=== PATIENT | male | born 1945 | race Caucasian/White ===

== ENCOUNTER → 2018-06-12 | Outpatient (REF) | payer MEDICARE, BC ==
[~2018-06-12] MED LIST: AMLODIPINE2.5 MG PO; ASPIRIN LOW DOS81 M2 PO; CIPROFLOXACN250 MG PO; DILAUDID 2MG2 MG/TA1 PO; HYDROXYCHLOR200 M1 PO; LISINOPRIL20 MG PO
== END | disposition home or self-care (01) ==
LOC: CT 05-24 13:00
PROVIDERS: ATTEND Internal Medicine Pulmonary Disease
DX: R91.8 Other nonspecific abnormal finding of lung field (principal)

== ENCOUNTER 2022-07-22 00:32 | Emergency (ER) | payer MEDICARE, BC ==
[~2022-07-22] VITALS: Ht 170.2 cm; Wt 50.9 kg
[2022-07-22] VITALS (33 sets, daily range): BP systolic 118–156; BP diastolic 49–70
[~2022-07-22 00:32] MED LIST changes: -ASPIRIN LOW DOS81 M2 PO; +ASPIRIN325 MG PO
[2022-07-22] MEDS ORDERED: HYDROXYCHLOR200 MG PO (00:49)
[2022-07-22 01:14] LABS: HEMATOCRIT 37.2 % (39.0-50.0); IMMATURE GRANULOCYTES 0.3 % (0.0-5.0); MEAN CORPUSCULAR HGB CONC 29.8 g/dL CAL (32.0-36.0); NEUT# 23.49 thou/uL (1.82-7.42); RED BLOOD COUNT 3.7 mill/uL (4.70-6.10); RED CELL DISTRI WIDTH 12.6 % (11.5-15.5)
[2022-07-22 01:35] LABS: HEMOGLOBIN 11.1 g/dl (14.0-18.0); MEAN CELL VOLUME 100.5 fL CALC (80.0-100.0)
[2022-07-22 01:47] LABS: ALBUMIN 3.6 g/dL (3.2-5.0); ALKALINE PHOSPHATASE 125 u/l (38-126); BILIRUBIN, TOTAL 0.5 mg/dL (0.0-1.4); CHLORIDE 99 mmol/l (95-108); CREATININE 0.8 mg/dL (0.7-1.3); GFR FOR AFR.AMER. > 60 ML/MIN (>=60 (CALC)); GFR OTHER RACES > 60 ML/MIN (>=60 (CALC)); SODIUM 141 mmol/l (137-146); TOTAL PROTEIN 6.4 g/dL (6.3-8.2)
[2022-07-22 01:48] LABS: BUN 63 mg/dL (8-23); BUN/CREATININE RATIO 79 (12-20 (CALC)); POTASSIUM 5.7 mmol/l (3.5-5.1)
[2022-07-22 01:49] LABS: ANION GAP 8 (6-22 (CALC)); CARBON DIOXIDE 40 mmol/l (22-30); SGOT/AST 64 u/l (19-48)
[2022-07-22 02:00] LABS: MYOGLOBIN 158 ng/mL (0 - 121)
[2022-07-22 02:24] LABS: ACT PARTIAL THROMBO TIME 22.8 SECONDS (20.0-32.5); INTERNATIONAL NORMALIZED RATIO 1.1 RATIO (0.7-1.3); PROTHROMBIN TIME 11.2 SECONDS (9.0-12.5)
[2022-07-22] MEDS ORDERED: LISINOPRIL10 MG PO (05:09)
== END 2022-07-22 11:10 | disposition short-term general hospital (02) ==
LOC: ED 00:32
PROVIDERS: Emergency Medicine
DX: R41.82 Altered mental status, unspecified (principal); R79.89 Other specified abnormal findings of blood chemistry; D72.829 Elevated white blood cell count, unspecified; C14.0 Malignant neoplasm of pharynx, unspecified; R91.8 Other nonspecific abnormal finding of lung field; I69.351 Hemiplegia and hemiparesis following cerebral infarction affecting right dominant side; J44.9 Chronic obstructive pulmonary disease, unspecified; M06.9 Rheumatoid arthritis, unspecified; J95.811 Postprocedural pneumothorax; Y84.8 Other medical procedures as the cause of abnormal reaction of the patient, or of later complication, without mention of misadventure at the time of the procedure; Z97.8 Presence of other specified devices
CPT/HCPCS: J1644; Q9967

== ENCOUNTER 2022-08-13 09:20 | Emergency (ER) | payer MEDICARE, BC ==
[2022-08-13] VITALS (17 sets, daily range): BP systolic 91–115; BP diastolic 39–72
[~2022-08-13] VITALS: Ht 170.2 cm; Wt 50.1 kg
[~2022-08-13 09:20] MED LIST changes: +HYDROXYCHLOR200 MG PO; +LISINOPRIL10 MG PO
[2022-08-13 09:54] LABS: IMMATURE GRANULOCYTES 0.5 % (0.0-5.0); MEAN CELL VOLUME 99.3 fL CALC (80.0-100.0); MEAN CORPUSCULAR HGB 30.9 pG CALC (26.0-32.0); MEAN CORPUSCULAR HGB CONC 31.1 g/dL CAL (32.0-36.0); RED BLOOD COUNT 1.49 mill/uL (4.70-6.10); RED CELL DISTRI WIDTH 14.4 % (11.5-15.5)
[2022-08-13 10:00] LABS: HEMOGLOBIN 4.6 g/dl (14.0-18.0)
[2022-08-13 10:01] LABS: HEMATOCRIT 14.8 % (39.0-50.0)
[2022-08-13 10:12] LABS: ALKALINE PHOSPHATASE 90 u/l (38-126); CARBON DIOXIDE 39 mmol/l (22-30); CHLORIDE 96 mmol/l (95-108); CREATININE 0.7 mg/dL (0.7-1.3); GFR FOR AFR.AMER. > 60 ML/MIN (>=60 (CALC)); GFR OTHER RACES > 60 ML/MIN (>=60 (CALC)); SGOT/AST 27 u/l (19-48); SODIUM 134 mmol/l (137-146)
[2022-08-13 10:17] LABS: ALBUMIN 2.5 g/dL (3.2-5.0); ANION GAP 3 (6-22 (CALC)); BILIRUBIN, TOTAL 0.2 mg/dL (0.0-1.4); BUN 32 mg/dL (8-23); BUN/CREATININE RATIO 46 (12-20 (CALC)); POTASSIUM 4.1 mmol/l (3.5-5.1); TOTAL PROTEIN 4.6 g/dL (6.3-8.2)
[2022-08-13] MEDS ORDERED: LIPITOR40 M1 PO (10:23)
[2022-08-13] MEDS ORDERED: STIOLTO RESPIMA1 AER IN (10:25)
== END 2022-08-13 12:45 | disposition short-term general hospital (02) ==
LOC: ED 09:20
PROVIDERS: Family Medicine
PROC: 30233N1 Transfusion of Nonautologous Red Blood Cells into Peripheral Vein, Percutaneous Approach (ICD-10-PCS; principal; 2022-08-13)
DX: K92.2 Gastrointestinal hemorrhage, unspecified (principal); D64.9 Anemia, unspecified; R79.89 Other specified abnormal findings of blood chemistry; I10 Essential (primary) hypertension; J44.9 Chronic obstructive pulmonary disease, unspecified; M06.9 Rheumatoid arthritis, unspecified; Z85.819 Personal history of malignant neoplasm of unspecified site of lip, oral cavity, and pharynx; Z85.118 Personal history of other malignant neoplasm of bronchus and lung; Z99.81 Dependence on supplemental oxygen; Z86.73 Personal history of transient ischemic attack (TIA), and cerebral infarction without residual deficits; Z79.82 Long term (current) use of aspirin; Z20.822 Contact with and (suspected) exposure to COVID-19
CPT/HCPCS: P9016; Q9967; S0164

== ENCOUNTER 2023-09-19 08:47 | Day surgery (SDC) | payer MEDICARE, BC ==
[~2023-09-19] VITALS: Ht 167.6 cm; Wt 64.4 kg
[~2023-09-19 08:47] MED LIST changes: +LIPITOR40 M1 PO; +MEDDOSEPAK PO; +STIOLTO RESPIMA1 AER IN; +VALTREX1 GM PO
[2023-09-19 11:00] VITALS: BP 139/64
== END 2023-09-19 11:35 | disposition home or self-care (01) ==
LOC: ORM 08:47
PROVIDERS: ATTEND Surgery
PROC: 0DJD8ZZ Inspection of Lower Intestinal Tract, Via Natural or Artificial Opening Endoscopic (ICD-10-PCS; principal; 2023-09-19)
DX: Z12.11 Encounter for screening for malignant neoplasm of colon (principal); K57.30 Diverticulosis of large intestine without perforation or abscess without bleeding; K64.8 Other hemorrhoids; I10 Essential (primary) hypertension; Z87.891 Personal history of nicotine dependence; Z86.010 Personal history of colon polyps

== ENCOUNTER 2024-04-05 11:47 | Emergency (ER) | payer MEDICARE, BC ==
[~2024-04-05] VITALS: Ht 167.6 cm; Wt 46.8 kg
[2024-04-05] VITALS (8 sets, daily range): BP systolic 140–156; BP diastolic 63–110
[~2024-04-05 11:47] MED LIST changes: +[UNRECOGNIZED DRUG - OTHER]
[2024-04-05 13:11] LABS: BASO% 0.4 % (0-3); EOS% 0.8 % (0-8); HEMATOCRIT 36.9 % (39.0-50.0); HEMOGLOBIN 11.8 g/dl (14.0-18.0); LYMPH% 12.7 % (15-41); MEAN CELL VOLUME 96.3 fL CALC (80.0-100.0); MEAN CORPUSCULAR HGB 30.8 pG CALC (26.0-32.0); MONO% 18.2 % (2-13); NEUT# 1.6 thou/uL (1.82-7.42); NEUT% 67.9 % (42-76); RED BLOOD COUNT 3.83 mill/uL (4.70-6.10); RED CELL DISTRI WIDTH 12.4 % (11.5-15.5)
[2024-04-05] MEDS ORDERED: STIOLTO RESPIMA1 AER (13:19)
[2024-04-05 13:29] LABS: INTERNATIONAL NORMALIZED RATIO 1.2 RATIO (0.7-1.3)
[2024-04-05 13:31] LABS: ALBUMIN 3.5 g/dL (3.2-5.0); ALKALINE PHOSPHATASE 100 u/l (38-126); ANION GAP 4 (6-22 (CALC)); BILIRUBIN, TOTAL 0.3 mg/dL (0.2-1.3); BUN 14 mg/dL (8-23); BUN/CREATININE RATIO 21 (12-20 (CALC)); CHLORIDE 92 mmol/l (95-108); CREATININE 0.7 mg/dL (0.7-1.3); ESTIMATED GFR 93 ML/MIN (>=90 (CALC)); POTASSIUM 4.2 mmol/l (3.5-5.1); SGOT/AST 30 u/l (19-48); SODIUM 132 mmol/l (137-146)
[2024-04-05 13:34] LABS: D-DIMER 0.65 mg/L (0.19-0.60)
[2024-04-05 13:39] LABS: CARBON DIOXIDE 40 mmol/l (22-30)
== END 2024-04-05 16:04 | disposition left against medical advice (07) ==
LOC: ED 11:47
PROVIDERS: Family Medicine
DX: R07.9 Chest pain, unspecified (principal); R79.89 Other specified abnormal findings of blood chemistry; C34.90 Malignant neoplasm of unspecified part of unspecified bronchus or lung; J44.9 Chronic obstructive pulmonary disease, unspecified; M06.9 Rheumatoid arthritis, unspecified; Z86.73 Personal history of transient ischemic attack (TIA), and cerebral infarction without residual deficits; Z85.46 Personal history of malignant neoplasm of prostate; Z53.29 Procedure and treatment not carried out because of patient's decision for other reasons; Z85.819 Personal history of malignant neoplasm of unspecified site of lip, oral cavity, and pharynx; Z99.81 Dependence on supplemental oxygen; Z95.5 Presence of coronary angioplasty implant and graft; Z95.828 Presence of other vascular implants and grafts
CPT/HCPCS: Q9967

== ENCOUNTER 2024-05-27 08:15 | Emergency (ER) | payer MEDICARE, BC ==
[2024-05-27] VITALS (10 sets, daily range): BP systolic 135–158; BP diastolic 60–74
[~2024-05-27] VITALS: Ht 167.6 cm; Wt 50.0 kg
[~2024-05-27 08:15] MED LIST changes: +STIOLTO RESPIMA1 AER
[2024-05-27] MEDS ORDERED: ALBUTEROL SULFATE 2.5 MG VIAL IN ONE (08:25)
[2024-05-27] MEDS ORDERED: methylPREDNISolone SODIUM SUCC 125 MG/2 ML SDV IV ONE (08:25)
[2024-05-27] MEDS ORDERED: IPRATROPIUM-Albuterol 0.5MG-2.5MG/3 ML NEB ONE (08:25)
[2024-05-27 09:01] LABS: BASO% 0.6 % (0-3); EOS% 1.9 % (0-8); HEMATOCRIT 39.4 % (39.0-50.0); HEMOGLOBIN 12.1 g/dl (14.0-18.0); IMMATURE GRANULOCYTES 0.1 % (0.0-5.0); LYMPH% 4.9 % (15-41); MEAN CORPUSCULAR HGB 30.4 pG CALC (26.0-32.0); MEAN CORPUSCULAR HGB CONC 30.7 g/dL CAL (32.0-36.0); NEUT# 5.69 thou/uL (1.82-7.42); NEUT% 82.5 % (42-76); RED BLOOD COUNT 3.98 mill/uL (4.70-6.10); RED CELL DISTRI WIDTH 12.3 % (11.5-15.5)
[2024-05-27 09:04] LABS: ALBUMIN 3.9 g/dL (3.2-5.0); BILIRUBIN, TOTAL 0.4 mg/dL (0.2-1.3); CREATININE 0.5 mg/dL (0.7-1.3); POTASSIUM 4.8 mmol/l (3.5-5.1); TOTAL PROTEIN 6.7 g/dL (6.3-8.2)
[2024-05-27 09:19] LABS: INTERNATIONAL NORMALIZED RATIO 1.1 RATIO (0.7-1.3)
[2024-05-27 09:31] LABS: D-DIMER 0.69 mg/L (0.19-0.60); PROTHROMBIN TIME 10.5 SECONDS (9.0-12.5)
[2024-05-27] MEDS ORDERED: ALBUTEROL SUL0.083 % IN (10:15)
[2024-05-27 10:17] LABS: URINE BILIRUBIN - DIPSTICK Negative (NEGATIVE); URINE BLOOD DIPSTICK Negative (NEGATIVE); URINE GLUCOSE - DIPSTICK Negative (NEGATIVE); URINE KETONE Negative (NEGATIVE); URINE LEUK ESTERASE Negative (NEGATIVE); URINE NITRITE - DIPSTICK Negative (Negative); URINE PH 5.5 (4.5-8.0); URINE PROTEIN - DIPSTICK Negative (NEG-TRACE); URINE SPECIFIC GRAVITY >=1.030; URINE UROBILINOGEN - DIPSTICK 0.2 E.U./dL (0.2)
[2024-05-27 10:20] LABS: URINE COLOR Yellow
== END 2024-05-27 10:44 | disposition home or self-care (01) ==
LOC: ED 08:15
PROVIDERS: Family Medicine
DX: J44.1 Chronic obstructive pulmonary disease with (acute) exacerbation (principal); C34.90 Malignant neoplasm of unspecified part of unspecified bronchus or lung; Z87.891 Personal history of nicotine dependence; Z99.81 Dependence on supplemental oxygen; Z85.46 Personal history of malignant neoplasm of prostate; Z86.73 Personal history of transient ischemic attack (TIA), and cerebral infarction without residual deficits; Z85.89 Personal history of malignant neoplasm of other organs and systems